=== PATIENT | female | born 1995 | race Caucasian/White ===

== ENCOUNTER 2016-10-19 16:15 | Emergency (ER) | payer OTHER ==
[2016-10-19 16:38] VITALS: BP 115/60; PULSE 86; RESP 16; TEMP 98.6
--- NOTE | 2016-10-19 17:42 | ED ---
Wound/Laceration [facility] - General Chief Complaint: Wound/Laceration Stated Complaint: Finger Laceration Time Seen by Provider: 10/19/16 17:26 Source: patient, RN notes reviewed Mode of arrival: ambulatory Limitations: no limitations - History of Present Illness Initial Comments: 21-year-old female presented emergency department with chief complaint of laceration. Patient states she was using a broom and it broke causing a laceration to her left hand. Patient is up-to-date on tetanus. Patient has full range of motion no paresthesias. - Related Data Allergies Allergy/AdvReac Type Severity Reaction Status Date / Time No Known Allergies Allergy Verified 10/19/16 16:38 Review of Systems ROS Statement: Those systems with pertinent positive or pertinent negative responses have been documented in the HPI. ROS Other: All systems not noted in ROS Statement are negative. Past Medical History Past Medical History: No Reported History History of Any Multi-Drug Resistant Organisms: None Reported Past Surgical History: No Surgical Hx Reported Smoking Status: Never smoker Past Alcohol Use History: None Reported Past Drug Use History: None Reported General Exam Limitations: no limitations General appearance: alert, in no apparent distress Head exam: Present: atraumatic, normocephalic, normal inspection Respiratory exam: Present: normal lung sounds bilaterally. Absent: respiratory distress, wheezes, rales, rhonchi, stridor Cardiovascular Exam: Present: regular rate, normal rhythm, normal heart sounds. Absent: systolic murmur, diastolic murmur, rubs, gallop, clicks Extremities exam: Present: other (There is a 2 cm laceration to her left hand second digit at the distal tip full range of motion full-strength) Course Vital Signs 10/19/16 16:36 Temperature 98.6 F Pulse Rate 86 Respiratory 16 Rate Blood Pressure 115/60 O2 Sat by Pulse 100 Oximetry Procedures - Laceration Laceration #1 Consent Obtained: verbal consent Indication: laceration Site: hand (Left hand second digit) Size (cm): 2 Description: flap Depth: simple, single layer Anesthetic Used: lidocaine 1%, without epi Anesthesia Technique: local infiltration Amount (mls): 3 Pre-repair: wound explored, irrigated extensively Type of Sutures: nylon Size of Sutures: 4-0 Number of Sutures: 5 Technique: simple, interrupted Patient Tolerated Procedure: well, no complications Disposition Clinical Impression: Finger laceration Disposition: HOME SELF-CARE Condition: Stable Instructions: Finger Laceration (ED), Care For Your Stitches (ED) Additional Instructions: Please have your sutures removed in 10 days.Please return to the Emergency Department if symptoms worsen or any other concerns. Referrals: None,Stated [Primary Care Provider] - 1-2 days Time of Disposition: 17:42
== END 2016-10-19 17:52 | disposition home or self-care (01) ==
LOC: EC 16:15
DX: S61.211A Laceration without foreign body of left index finger without damage to nail, initial encounter (principal); W26.8XXA Contact with other sharp object(s), not elsewhere classified, initial encounter
CPT/HCPCS: 12001; 99282

== ENCOUNTER 2016-12-16 16:56 | Emergency (ER) | payer OTHER ==
[2016-12-16 17:17] VITALS: BP 109/68; PULSE 80; RESP 20; TEMP 98.1
--- NOTE | 2016-12-16 18:10 | XR ---
EXAMINATION TYPE: XR wrist complete LT DATE OF EXAM: 12/16/2016 COMPARISON: NONE HISTORY: 21-year-old female with a wrist pain TECHNIQUE: 4 views FINDINGS: Negative ulnar variance incidentally noted. There may be isolated degenerative change between the tra pezoid and capitate. The radiocarpal and distal radial ulnar joints as well as the midcarpal compartm ent appear intact. No acute fracture or dislocation. IMPRESSION: 1. No acute osseous abnormality seen. 2. Incidental negative ulnar variance. 3. Possible focal intercarpal degenerative change between the trapezoid and capitate. Correlate for a ny localized pain here.
--- NOTE | 2016-12-16 18:14 | ED ---
Upper Extremity HPI - General Chief Complaint: Extremity Injury, Upper Stated Complaint: Wrist Injury Time Seen by Provider: 12/16/16 17:35 Source: patient, RN notes reviewed, old records reviewed Mode of arrival: ambulatory Limitations: no limitations - History of Present Illness Initial Comments: 21-year-old female presents to the emergency department with a chief complaint of left wrist pain for the past day. Patient reports she hit her rest on the edge of the stair railing. Has always had aAbnormal deformity and her wrist Which she attributed to some abnormal bony growth. Patient reports it is painful to flex and extend the rest. She is right handed.Patient denies any referral paresthesias, Chest pain, shortness of breath, headache, vision changes , nausea, vomiting, abdominal pain. - Related Data Previous Rx's Medication Instructions Recorded Ibuprofen [Motrin] 600 mg PO Q8HR PRN #20 tab 12/16/16 Allergies Allergy/AdvReac Type Severity Reaction Status Date / Time No Known Allergies Allergy Verified 12/16/16 17:17 Review of Systems ROS Statement: Those systems with pertinent positive or pertinent negative responses have been documented in the HPI. ROS Other: All systems not noted in ROS Statement are negative. Past Medical History Past Medical History: No Reported History History of Any Multi-Drug Resistant Organisms: None Reported Past Surgical History: No Surgical Hx Reported Past Psychological History: No Psychological Hx Reported Smoking Status: Never smoker Past Alcohol Use History: None Reported Past Drug Use History: None Reported General Exam - General Exam Comments Initial Comments: welll appearing 21 year old female, no distress. Limitations: no limitations General appearance: alert, in no apparent distress Head exam: Present: atraumatic, normocephalic, normal inspection Eye exam: Present: normal appearance, PERRL, EOMI. Absent: scleral icterus, conjunctival injection, periorbital swelling ENT exam: Present: normal exam, mucous membranes moist Neck exam: Present: normal inspection. Absent: tenderness, meningismus, lymphadenopathy Respiratory exam: Present: normal lung sounds bilaterally. Absent: respiratory distress, wheezes, rales, rhonchi, stridor Extremities exam: Present: normal inspection, full ROM, normal capillary refill , other (left wrist pain with flexion and etension. No deformity, less than 2 second capilliary refill, good radial pulse. Evidecne of bony over growth, or possible ganglion cyst. ). Absent: tenderness, pedal edema, joint swelling, calf tenderness Back exam: Present: normal inspection Course Vital Signs 12/16/16 17:15 Temperature 98.1 F Pulse Rate 80 Respiratory 20 Rate Blood Pressure 109/68 O2 Sat by Pulse 98 Oximetry Medical Decision Making - Medical Decision Making 21-year-old female presents to the emergency department with a chief complaint of left wrist pain for the past day. Patient reports she hit her rest on the edge of the stair railing. Has always had aAbnormal deformity and her wrist Which she attributed to some abnormal bony growth. Xray negative for any acute fracture. Patient given AUGUST wrap. Instructed to follow up with PCP. Return parameters discussed. - Radiology Data Radiology results: report reviewed No acute osseous at the scene. Incidental negative ulnar variance. Possible focal intercarpal desired change between the trapezoid and capitate. Disposition Clinical Impression: Strain of left wrist, Contusion of left wrist Disposition: HOME SELF-CARE Condition: Good Instructions: Wrist Injury (ED) Additional Instructions: Patient is to rest, ice, elevate extremity. Keep the August wrap on. Return to the emergency department if any alarming signs symptoms occur. Take the anti- inflammatory medicine as per directed. Prescriptions: Ibuprofen [Motrin] 600 mg PO Q8HR PRN #20 tab PRN Reason: Pain Referrals: None,Stated [Primary Care Provider] - 1-2 days Sarah Choudhury MD [STAFF PHYSICIAN] - 1-2 days Jeff Christensen PAC [PHYSICIAN ELECTRICAL INSTRUMENTATION TECHNICIAN] - 1-2 days Time of Disposition: 18:12
== END 2016-12-16 18:52 | disposition home or self-care (01) ==
LOC: EC 16:56
DX: S66.912A Strain of unspecified muscle, fascia and tendon at wrist and hand level, left hand, initial encounter (principal); W22.8XXA Striking against or struck by other objects, initial encounter
CPT/HCPCS: 99284

== ENCOUNTER 2020-01-30 13:48 | Emergency (ER) | payer OTHER ==
[2020-01-30 14:01] VITALS: BP 119/81; PULSE 79; RESP 16; TEMP 98.3
--- NOTE | 2020-01-30 14:20 | ED ---
Extremity Problem HPI - General Chief complaint: Extremity Problem,Nontraumatic Stated complaint: L Leg Pain Time Seen by Provider: 01/30/20 14:03 Source: patient, RN notes reviewed, old records reviewed Mode of arrival: ambulatory Limitations: no limitations - History of Present Illness Initial comments: 24-year-old female presents emergency department today with chief complaint of one month of left ankle pain and feels a small bump on the anterior aspect of the left ankle. Patient denies any recent fall or trauma. She reports that there is some minimal erythema one time and Patient was treated with Keflex. Patient states that she has no redness or pain at this time. Patient states that she feels a smooth bump in the anterior ankle and one have this looked at. Patient states that she's had no fevers or chills. He denies any calf pain knee pain. Denies any pain with range of motion of the ankle. She reports that when she is walking on it from time to time she'll have a sharp pain. - Related Data Previous Rx's Medication Instructions Recorded Ibuprofen [Motrin] 600 mg PO Q8HR PRN #20 tab 12/16/16 Allergies Allergy/AdvReac Type Severity Reaction Status Date / Time No Known Allergies Allergy Verified 01/30/20 14:00 Review of Systems ROS Statement: Those systems with pertinent positive or pertinent negative responses have been documented in the HPI. ROS Other: All systems not noted in ROS Statement are negative. Past Medical History Past Medical History: No Reported History History of Any Multi-Drug Resistant Organisms: None Reported Past Surgical History: No Surgical Hx Reported Past Psychological History: No Psychological Hx Reported Smoking Status: Never smoker Past Alcohol Use History: None Reported Past Drug Use History: Marijuana General Exam - General Exam Comments Initial Comments: 24-year-old female. No distress. Limitations: no limitations General appearance: alert, in no apparent distress Head exam: Present: atraumatic, normocephalic, normal inspection Eye exam: Present: normal appearance, PERRL, EOMI. Absent: scleral icterus, conjunctival injection, periorbital swelling ENT exam: Present: normal exam, mucous membranes moist Neck exam: Present: normal inspection. Absent: tenderness, meningismus, lymphadenopathy Respiratory exam: Present: normal lung sounds bilaterally. Absent: respiratory distress, wheezes, rales, rhonchi, stridor Cardiovascular Exam: Present: regular rate, normal rhythm, normal heart sounds. Absent: systolic murmur, diastolic murmur, rubs, gallop, clicks GI/Abdominal exam: Present: soft, normal bowel sounds. Absent: distended, tenderness, guarding, rebound, rigid Extremities exam: Present: normal inspection, full ROM, normal capillary refill, other (Patient has normal-appearing left ankle. There is a small less than 1 cm bump over the anterior yañez. No swelling or erythema. No history of trauma. She has normal capillary refill less than 2 seconds. Negative Homans sign. Patient has full range of motion of the knee.). Absent: tenderness, pedal edema, joint swelling, calf tenderness Back exam: Present: normal inspection, full ROM Neurological exam: Present: alert, oriented X3, CN II-XII intact Psychiatric exam: Present: normal affect, normal mood Skin exam: Present: warm, dry, intact, normal color. Absent: rash Course Vital Signs 01/30/20 13:58 Temperature 98.3 F Pulse Rate 79 Respiratory 16 Rate Blood Pressure 119/81 O2 Sat by Pulse 100 Oximetry Medical Decision Making - Medical Decision Making 24-year-old female presents emergency from today for evaluation for a bump over the left ankle. She's had this for a month. She states that it seemed to be related to infection she was treated with Keflex but now the infection is gone. Patient at this time has full range of motion. Negative Homans sign tenderness. Her ankle appears normal with one small less than 1 cm bump may be calcification or a cyst. I discussed the Patient needs to follow-up with orthopedic if it continues to cause pain but there is no emergent treatment at this time or imaging required. Patient is agreeable to treatment plan. She did request a work note. Disposition Clinical Impression: Synovial cyst of ankle and foot region Disposition: HOME SELF-CARE Condition: Good Instructions (If sedation given, give patient instructions): Arthralgia (ED) Additional Instructions: Motrin Tylenol for pain. Wrap the area that does become swollen. Follow-up with orthopedic. Is patient prescribed a controlled substance at d/c from ED?: No Referrals: None,Stated [Primary Care Provider] - 1-2 days Vipin Melton DO [Medical Doctor] - 1-2 days Time of Disposition: 14:18
== END 2020-01-30 14:42 | disposition home or self-care (01) ==
LOC: EC 13:48
DX: M71.372 Other bursal cyst, left ankle and foot (principal)
CPT/HCPCS: 99283

== ENCOUNTER 2020-03-22 07:11 | Emergency (ER) | payer OTHER ==
[2020-03-22 07:21] VITALS: BP 118/79; PULSE 68; RESP 18; TEMP 98.7
--- NOTE | 2020-03-22 07:47 | ED ---
General Adult HPI - General Chief complaint: Nausea/Vomiting/Diarrhea Stated complaint: abd pain Time Seen by Provider: 03/22/20 07:11 Source: patient, RN notes reviewed, old records reviewed Mode of arrival: ambulatory Limitations: no limitations - History of Present Illness Initial comments: This is a 24-year-old female who presents emergency department stating she woke up nauseated this morning patient denies any vomiting. Patient denies any fever chills. Patient denies any cough. Patient denies any difficulty breathing shortest breath per patient denies any diarrhea. Patient states this is been something that is occurred occasionally over the last year or so she's never been followed up for. Patient states she felt so nauseated that she called into work and her work requires her to come the emergency department to be COVID test. Patient states aside from the nausea she has no other symptoms. She has no abdominal pain. Patient states she's had no known exposure COVID. Patient states she can't be because she has never been sexually active. - Related Data Previous Rx's Medication Instructions Recorded Ibuprofen [Motrin] 600 mg PO Q8HR PRN #20 tab 12/16/16 Allergies Allergy/AdvReac Type Severity Reaction Status Date / Time No Known Allergies Allergy Verified 03/22/20 07:21 Review of Systems ROS Statement: Those systems with pertinent positive or pertinent negative responses have been documented in the HPI. ROS Other: All systems not noted in ROS Statement are negative. Past Medical History Past Medical History: No Reported History History of Any Multi-Drug Resistant Organisms: None Reported Past Surgical History: No Surgical Hx Reported Past Psychological History: No Psychological Hx Reported Smoking Status: Never smoker Past Alcohol Use History: Occasional Past Drug Use History: Marijuana General Exam - General Exam Comments Initial Comments: GENERAL: Patient is well-developed and well-nourished. Patient is nontoxic and well- hydrated and is in mild distress. ENT: Neck is soft and supple. No significant lymphadenopathy is noted. Oropharynx is clear. Moist mucous membranes. Neck has full range of motion without eliciting any pain. EYES: The sclera were anicteric and conjunctiva were pink and moist. Extraocular movements were intact and pupils were equal round and reactive to light. Eyelids were unremarkable. PULMONARY: Unlabored respirations. Good breath sounds bilaterally. No audible rales rhonchi or wheezing was noted. CARDIOVASCULAR: There is a regular rate and rhythm without any murmurs gallops or rubs. ABDOMEN: Soft and nontender with normal bowel sounds. SKIN: Skin is clear with no lesions or rashes and otherwise unremarkable. NEUROLOGIC: Patient is alert and oriented x3. Cranial nerves II through XII are grossly intact. Motor and sensory are also intact. Normal speech, volume and content. Symmetrical smile. MUSCULOSKELETAL: Normal extremities with adequate strength and full range of motion. LYMPHATICS: No significant lymphadenopathy is noted PSYCHIATRIC: Normal psychiatric evaluation. Limitations: no limitations Course Vital Signs 03/22/20 07:18 Temperature 98.7 F Pulse Rate 68 Respiratory 18 Rate Blood Pressure 118/79 O2 Sat by Pulse 100 Oximetry Medical Decision Making - Medical Decision Making We performed a COVID test. Disposition Clinical Impression: Nausea Disposition: HOME SELF-CARE Instructions (If sedation given, give patient instructions): Acute Nausea and Vomiting (ED) Additional Instructions: If patient has any worsening symptoms or new symptoms patient is to return to the emergency department until she follows up. Patient received a primary [facility] care doctor and follow-up for the nausea. Is patient prescribed a controlled substance at d/c from ED?: No Referrals: None,Stated [Primary Care Provider] - 1-2 days Time of Disposition: 07:49
== END 2020-03-22 08:12 | disposition home or self-care (01) ==
LOC: EC 07:11
DX: R11.0 Nausea (principal)
CPT/HCPCS: 99284; U0003

== ENCOUNTER 2020-07-17 15:41 | Emergency (ER) | payer OTHER ==
[2020-07-17 15:45] VITALS: BP 123/79; PULSE 90; RESP 20; TEMP 97.6
[2020-07-17] MEDS ORDERED: KETOROLAC 15 MG/ML 1 ML VIAL IVP STA (16:01)
[2020-07-17] MEDS ORDERED: SODIUM CHLORIDE 0.9% 1,000 ML IV STA (16:01)
[2020-07-17] MEDS ORDERED: ONDANSETRON 4 MG/2 ML VIAL IVP STA (16:01)
[2020-07-17 16:54] LABS: Basophils % (A) 0 %; Eosinophils # (A) 0.1 k/uL (0-0.7); Eosinophils % (A) 1 %; HCT 41.6 % (34.0-46.0); HGB 14.1 gm/dL (11.4-16.0); Lymphocytes # (A) 1.8 k/uL (1.0-4.8); Lymphocytes % (A) 29 %; MCH 29.1 pg (25.0-35.0); MCV 85.8 fL (80.0-100.0); Mean Platelet Volume 6.6; Monocytes # (A) 0.3 k/uL (0-1.0); Monocytes % (A) 5 %; Neutrophils # (A) 3.8 k/uL (1.3-7.7); Neutrophils % (A) 63 %; Platelet Count 259 k/uL (150-450); RBC 4.85 m/uL (3.80-5.40); RDW 12.7 % (11.5-15.5); WBC 6.1 k/uL (3.8-10.6)
[2020-07-17 17:00] LABS: Amorphous Sediment,Urine Few /hpf; Appearance,Urine Cloudy (Clear); Bilirubin,Urine Negative (Negative); Blood,Urine Negative (Negative); Color,Urine Yellow; Glucose,Urine (UA) Negative (Negative); Ketones,Urine Negative (Negative); Leukocyte Esterase,Urine Trace (Negative); Mucus,Urine Rare /hpf; Nitrite,Urine Negative (Negative); PH, Urine 6.5 (5.0-8.0); Protein,Urine Negative (Negative); RBC,Urine <1 /hpf (0-5); Specific Gravity,Urine 1.021 (1.001-1.035); Squamous Epithelial Cell,Urine 1 /hpf (0-4); Urobilinogen,Urine <2.0 mg/dL (<2.0); WBC,Urine 2 /hpf (0-5)
[2020-07-17 17:21] LABS: ALT 12 U/L (4-34); AST 19 U/L (14-36); African American GFR (CKD) >90 (>60 ml/min/1.73 sqM); Albumin 4.2 g/dL (3.5-5.0); Alkaline Phosphatase 61 U/L (38-126); Anion Gap 8 mmol/L; Blood Urea Nitrogen 12 mg/dL (7-17); Calcium 9.4 mg/dL (8.4-10.2); Carbon Dioxide 25 mmol/L (22-30); Chloride 104 mmol/L (98-107); Glucose 99 mg/dL (74-99); Lipase 107 U/L (23-300); Non-African American GFR(CKD) >90 (>60 ml/min/1.73 sqM); Sodium 137 mmol/L (137-145); Total Bilirubin 0.4 mg/dL (0.2-1.3); Total Protein 6.8 g/dL (6.3-8.2)
--- NOTE | 2020-07-17 17:24 | XR ---
EXAMINATION TYPE: XR KUB DATE OF EXAM: 07/17/2020 COMPARISON: NONE HISTORY: Abdominal pain for one month TECHNIQUE: 2 views upright FINDINGS: There is no sign of intestinal obstruction or pneumoperitoneum. Fecal pattern is normal. Kimmy ng bases are clear. There are no pathologic calcifications over the kidneys. Bony structures are inta ct. IMPRESSION: Nonacute abdomen.
--- NOTE | 2020-07-17 17:49 | ED ---
Abdominal Pain HPI - General Chief Complaint: Abdominal Pain Stated Complaint: abd pain Source: patient Mode of arrival: ambulatory Limitations: no limitations - History of Present Illness Initial Comments: Patient is a 24-year-old previously healthy female who presents emergency room in with reported abdominal pain. States that she has had some generalized abdominal pain going on for the past several months. She was evaluated in our emergency department several months ago. Reports that her pain has continued and she was seen at [facility] weeks ago. Describes her pain as a generalized abdominal pain. She will have some cramping which is followed by a bowel movement. He reports that the bowel movement will be variable between constipation and diarrhea. Says she has a bowel movement her symptoms will improve. Denies family history of inflammatory bowel disease. No black or bloody stools. Denies dysuria, hematuria or difficulty voiding. No abnormal vaginal bleeding or discharge. No concern for . No concern sexually transmitted infections. Reports that 3 weeks ago at [facility] she had a CT of her abdomen. Was told that she was constipated however was not given any instructions. Has not followed up with her primary care doctor. She has not taken anything [id number] to move her bowels. Her pain was more significant at that time warranting the CT. States that it has improved however due to her continued pain decided to come to the emergency room for evaluation. No fevers or chills. Denies cough or shortness of breath. No other alleviating, precipitating or modifying factors - Related Data Previous Rx's Medication Instructions Recorded Ibuprofen [Motrin] 600 mg PO Q8HR PRN #20 tab 12/16/16 Polyethylene Glycol 3350 [Miralax] 17 gm PO DAILY PRN #527 gm 07/17/20 Allergies Allergy/AdvReac Type Severity Reaction Status Date / Time No Known Allergies Allergy Verified 07/17/20 15:45 Review of Systems ROS Statement: Those systems with pertinent positive or pertinent negative responses have been documented in the HPI. ROS Other: All systems not noted in ROS Statement are negative. Past Medical History Past Medical History: No Reported History History of Any Multi-Drug Resistant Organisms: None Reported Past Surgical History: No Surgical Hx Reported Past Psychological History: No Psychological Hx Reported Smoking Status: Never smoker Past Alcohol Use History: Occasional Past Drug Use History: Marijuana General Exam Limitations: no limitations General appearance: alert, in no apparent distress Head exam: Present: atraumatic, normocephalic, normal inspection Eye exam: Present: normal appearance, PERRL, EOMI. Absent: scleral icterus, conjunctival injection, periorbital swelling ENT exam: Present: normal exam, mucous membranes moist Neck exam: Present: normal inspection. Absent: tenderness, meningismus, lymphadenopathy Respiratory exam: Present: normal lung sounds bilaterally. Absent: respiratory distress, wheezes, rales, rhonchi, stridor Cardiovascular Exam: Present: regular rate, normal rhythm, normal heart sounds. Absent: systolic murmur, diastolic murmur, rubs, gallop, clicks GI/Abdominal exam: Present: soft, normal bowel sounds. Absent: distended, tenderness, guarding, rebound, rigid Extremities exam: Present: normal inspection, full ROM, normal capillary refill. Absent: tenderness, pedal edema, joint swelling, calf tenderness Back exam: Present: normal inspection Neurological exam: Present: alert, oriented X3, CN II-XII intact Psychiatric exam: Present: normal affect, normal mood Skin exam: Present: warm, dry, intact, normal color. Absent: rash Course Vital Signs 07/17/20 15:43 Temperature 97.6 F Pulse Rate 90 Respiratory 20 Rate Blood Pressure 123/79 O2 Sat by Pulse 99 Oximetry Medical Decision Making - Medical Decision Making Plan arrival patient is placed into room 19. A thorough history and physical exam was performed. IV is established. Patient was given informal grams of Zofran, 50 mg of Toradol and a liter bolus of normal saline. Laboratory studies are conducted. Patient was sent for a abdominal x-ray. Laboratory studies and imaging are reviewed for any acute findings. I discussed results with the patient. I discussed diagnosis, differential treatment options. She must call her insurance company to be given a list of available providers at take her insurance. She will be given a prescription for MiraLAX to take as needed for constipation. Return to the emergency room for any new or worsening symptoms. I did recommend colonoscopy and EGD. Patient agreed to this treatment plan and was discharged home in stable condition - Lab Data Result diagrams: 07/17/20 16:47 07/17/20 16:47 Lab Results 07/17/20 07/17/20 07/17/20 Range/Units 16:47 16:47 16:47 WBC 6.1 (3.8-10.6) k/uL RBC 4.85 (3.80-5.40) m/uL Hgb 14.1 (11.4-16.0) gm/dL Hct 41.6 (34.0-46.0) % MCV 85.8 (80.0-100.0) fL MCH 29.1 (25.0-35.0) pg MCHC 34.0 (31.0-37.0) g/dL RDW 12.7 (11.5-15.5) % Plt Count 259 (150-450) k/uL MPV 6.6 Neutrophils % 63 % Lymphocytes % 29 % Monocytes % 5 % Eosinophils % 1 % Basophils % 0 % Neutrophils # 3.8 (1.3-7.7) k/uL Lymphocytes # 1.8 (1.0-4.8) k/uL Monocytes # 0.3 (0-1.0) k/uL Eosinophils # 0.1 (0-0.7) k/uL Basophils # 0.0 (0-0.2) k/uL Sodium 137 (137-145) mmol/L Potassium 4.0 (3.5-5.1) mmol/L Chloride 104 (98-107) mmol/L Carbon Dioxide 25 (22-30) mmol/L Anion Gap 8 mmol/L BUN 12 (7-17) mg/dL Creatinine 0.84 (0.52-1.04) mg/dL Est GFR (CKD-EPI)AfAm >90 (>60 ml/min/1.73 sqM) Est GFR (CKD-EPI)NonAf >90 (>60 ml/min/1.73 sqM) Glucose 99 (74-99) mg/dL Calcium 9.4 (8.4-10.2) mg/dL Total Bilirubin 0.4 (0.2-1.3) mg/dL AST 19 (14-36) U/L ALT 12 (4-34) U/L Alkaline Phosphatase 61 (38-126) U/L Total Protein 6.8 (6.3-8.2) g/dL Albumin 4.2 (3.5-5.0) g/dL Lipase 107 (23-300) U/L Urine Color Yellow Urine Appearance Cloudy H (Clear) Urine pH 6.5 (5.0-8.0) Ur Specific Bridger 1.021 (1.001-1.035) Urine Protein Negative (Negative) Urine Glucose (UA) Negative (Negative) Urine Ketones Negative (Negative) Urine Blood Negative (Negative) Urine Nitrite Negative (Negative) Urine Bilirubin Negative (Negative) Urine Urobilinogen <2.0 (<2.0) mg/dL Ur Leukocyte Esterase Trace H (Negative) Urine RBC <1 (0-5) /hpf Urine WBC 2 (0-5) /hpf Ur Squamous Epith Cells 1 (0-4) /hpf Amorphous Sediment Few H (None) /hpf Urine Mucus Rare H (None) /hpf - EKG Data EKG Comments: EKG demonstrates a sinus rhythm with ventricular rate of 76. MS 158. QRS 76. QTC of 405. No acute ST segment elevations or depressions concerning for ischemic changes Disposition Clinical Impression: Abdominal pain Disposition: HOME SELF-CARE Condition: Stable Instructions (If sedation given, give patient instructions): Abdominal Pain (ED) Additional Instructions: Please call your insurance company to ask for a primary care doctor that takes your insurance. Take the Miralax for constipation. You may need an EGD and colonoscopy. The primary care doctor can get you set up with these studies. R eturn to the ED for any new or worsening symptoms. Prescriptions: Polyethylene Glycol 3350 [Miralax] 17 gm PO DAILY PRN #527 gm PRN Reason: Constipation Is patient prescribed a controlled substance at d/c from ED?: No Referrals: None,Stated [Primary Care Provider] - 1-2 days Time of Disposition: 17:49
== END 2020-07-17 18:21 | disposition home or self-care (01) ==
LOC: EC 15:41
DX: R10.84 Generalized abdominal pain (principal); K59.00 Constipation, unspecified
CPT/HCPCS: 36415; 93005; 80053; 83690; 85025; 81001; 74018; 99284; 96374; 96375; 96361; J2405; J1885

== ENCOUNTER 2020-09-03 11:29 | Emergency (ER) | payer OTHER ==
[2020-09-03 11:35] VITALS: BP 118/82; PULSE 98; RESP 18; TEMP 97.8
--- NOTE | 2020-09-03 12:13 | XR ---
EXAMINATION TYPE: XR tibia fibula LT DATE OF EXAM: 09/03/2020 CLINICAL HISTORY: Pain and swelling. TECHNIQUE: Two views of the left leg are obtained. COMPARISON: None. FINDINGS: There is no acute fracture or dislocation seen in the left tibia or fibula. The left knee and ankle joints appear within normal limits. The overlying soft tissue appears unremarkable. IMPRESSION: Unremarkable study.
--- NOTE | 2020-09-03 12:16 | ED ---
Skin/Abscess/FB HPI - General Chief complaint: Skin/Abscess/Foreign Body Stated complaint: Leg pain Time Seen by Provider: 09/03/20 11:37 Source: patient Mode of arrival: ambulatory Limitations: no limitations - History of Present Illness Initial comments: 25-year-old female presenting to the emergency room today for chief complaint of left distal yañez pain. Patient states she hadn't has no injuries to her yañez or her legs she denies being a runner but states she has had anterior left lower yañez pain. She states she presented for the cellulitis in this area however she does not know any swelling redness she denies any fevers breaks in the skin or noting additional physical findings. Denies calf pain/posterior pain or leg swelling. Patient appears well nontoxic in no acute distress. - Related Data Previous Rx's Medication Instructions Recorded Ibuprofen [Motrin] 600 mg PO Q8HR PRN #20 tab 12/16/16 Polyethylene Glycol 3350 [Miralax] 17 gm PO DAILY PRN #527 gm 07/17/20 Allergies Allergy/AdvReac Type Severity Reaction Status Date / Time No Known Allergies Allergy Verified 09/03/20 11:35 Review of Systems ROS Statement: Those systems with pertinent positive or pertinent negative responses have been documented in the HPI. ROS Other: All systems not noted in ROS Statement are negative. Past Medical History Past Medical History: No Reported History History of Any Multi-Drug Resistant Organisms: None Reported Past Surgical History: No Surgical Hx Reported Past Psychological History: No Psychological Hx Reported Smoking Status: Never smoker Past Alcohol Use History: Occasional Past Drug Use History: Marijuana General Exam - General Exam Comments Initial Comments: General: The patient is awake and alert, in no distress Eye: Pupils are equal, round and reactive to light, extra-ocular movements are intact. No nystagmus. There is normal conjunctiva bilaterally. No signs of icterus. Ears, nose, mouth and throat: There are moist mucous membranes and no oral lesions. Neck: The neck is supple, there is no tenderness or JVD. Cardiovascular: There is a regular rate and rhythm. No murmur, rub or gallop is appreciated. Respiratory: Lungs are clear to auscultation, respirations are non-labored, breath sounds are equal. No wheezes, stridor, rales, or rhonchi. Gastrointestinal: [Soft, non-distended, non-tender abdomen without masses or organomegaly noted. There is no rebound or guarding present. Musculoskeletal: tender along the tendon of the left distal tibia. no swelling no redness. tenderness mmild. Normal ROM, no tenderness. Strength 5/5. Sensation intact. Radial and DP pulses equal bilaterally 2+. Neurological: A&O x 3. CN II-XII intact grossly, There are no obvious motor or sensory deficits. Coordination appears grossly intact. Speech is normal. Skin: Skin is warm and dry and no rashes or lesions are noted. Psychiatric: Cooperative, appropriate mood & affect, normal judgment. Limitations: no limitations Course Vital Signs 09/03/20 11:32 Temperature 97.8 F Pulse Rate 98 Respiratory 18 Rate Blood Pressure 118/82 O2 Sat by Pulse 98 Oximetry Medical Decision Making - Medical Decision Making Physical examination findings revealed no skin changes. No swelling. There is no posterior pain pain is very localized to tendon of lower leg. suspect tendonitis. Discussed symptomatic treatment including rice--at this time patient is agreeable to discharge with outpatient primary care follow-up. Disposition Clinical Impression: Pain in left yañez Disposition: HOME SELF-CARE Condition: Good Instructions (If sedation given, give patient instructions): Calcific Tendini tis (ED) Additional Instructions: Please use medication as discussed. Please follow-up with family doctor in the next 2 days. Please return to emergency room if the symptoms increase or worsen or for any other concerns. Is patient prescribed a controlled substance at d/c from ED?: No Referrals: None,Stated [Primary Care Provider] - [facility] Time of Disposition: 12:16
== END 2020-09-03 12:48 | disposition home or self-care (01) ==
LOC: EC 11:29
DX: M79.662 Pain in left lower leg (principal); F12.90 Cannabis use, unspecified, uncomplicated
CPT/HCPCS: 99283

== ENCOUNTER 2020-09-18 04:45 | Emergency (ER) | payer OTHER ==
[2020-09-18 04:52] VITALS: BP 121/75; PULSE 106; RESP 18; TEMP 98
[2020-09-18] MEDS ORDERED: ONDANSETRON ODT 4 MG TAB PO STA (05:06)
--- NOTE | 2020-09-18 05:09 | ED ---
Nausea/Vomiting/Diarrhea HPI - General Chief complaint: Nausea/Vomiting/Diarrhea Stated complaint: abd pain Time Seen by Provider: 09/18/20 04:57 Source: patient Mode of arrival: ambulatory Limitations: no limitations - History of Present Illness Initial comments: Patient is 25-year-old woman who presents to have treatment for nausea and vomiting as well as COVID-19 test. The patient had gone to work and then tonight at 3 AM developed nausea and had an episode of vomiting. She states she was sent home from work and told that she needed to have a negative test before she can return. She has not had other symptoms. Patient currently denying abdominal pain. She states that she does have irritable bowel syndrome so she does occasionally get cramping, and does have some issues with diarrhea occasionally. Tonight no change in urination or bowel movements. Her last menstrual cycle was nearly one month ago and was normal. MD complaint: nausea, vomiting Onset/Timin -: hour(s) Description of Vomiting: food contents Associated Abdominal Pain: No Severity scale (1-10): 0 Improves with: none Worsens with: none Associated Symptoms: denies other symptoms, nausea/vomiting - Related Data Previous Rx's Medication Instructions Recorded Ibuprofen [Motrin] 600 mg PO Q8HR PRN #20 tab 12/16/16 Polyethylene Glycol 3350 [Miralax] 17 gm PO DAILY PRN #527 gm 07/17/20 Ondansetron Odt [Zofran ODT] 4 mg PO Q8HR PRN #10 tab 09/18/20 Allergies Allergy/AdvReac Type Severity Reaction Status Date / Time No Known Allergies Allergy Verified 09/18/20 04:49 Review of Systems ROS Statement: Those systems with pertinent positive or pertinent negative responses have been documented in the HPI. ROS Other: All systems not noted in ROS Statement are negative. Constitutional: Denies: fever, chills Respiratory: Denies: cough, dyspnea Cardiovascular: Denies: chest pain, palpitations, edema Gastrointestinal: Reports: nausea, vomiting. Denies: abdominal pain, diarrhea, constipation, hematemesis, melena, hematochezia Genitourinary: Denies: dysuria, hematuria, abnormal menses Musculoskeletal: Denies: back pain Skin: Denies: rash Neurological: Denies: headache, weakness, numbness Past Medical History Past Medical History: No Reported History History of Any Multi-Drug Resistant Organisms: None Reported Past Surgical History: No Surgical Hx Reported Past Psychological History: Anxiety Smoking Status: Current every day smoker Past Alcohol Use History: None Reported Past Drug Use History: Marijuana General Exam Limitations: no limitations General appearance: alert, in no apparent distress Head exam: Present: atraumatic, normocephalic Eye exam: Present: normal appearance. Absent: scleral icterus, conjunctival injection Respiratory exam: Present: normal lung sounds bilaterally. Absent: respiratory distress, wheezes, rales, rhonchi, stridor Cardiovascular Exam: Present: regular rate, normal rhythm, normal heart sounds. Absent: systolic murmur, diastolic murmur, rubs, gallop GI/Abdominal exam: Present: soft. Absent: distended, tenderness, guarding, rebound, rigid, mass, pulsatile mass, hernia Back exam: Present: normal inspection. Absent: CVA tenderness (R), CVA tenderness (L) Neurological exam: Present: alert Skin exam: Present: warm, dry, intact, normal color. Absent: rash Course Vital Signs 09/18/20 04:49 Temperature 98.0 F Pulse Rate 106 H Respiratory 18 Rate Blood Pressure 121/75 O2 Sat by Pulse 97 Oximetry Medical Decision Making - Medical Decision Making We discussed having workup for abdominal pain, this point patient states she is feeling much better and declines that. She did just wants something for nausea and to have the Covid test - Lab Data Lab Results 09/18/20 Range/Units 05:13 Influenza Type A (PCR) Not Detected (Not Detectd) Influenza Type B (PCR) Not Detected (Not Detectd) RSV (PCR) Not Detected (Not Detectd) SARS-CoV-2 (PCR) Not Detected (Not Detectd) Disposition Clinical Impression: Vomiting Disposition: HOME SELF-CARE Condition: Good Instructions (If sedation given, give patient instructions): Acute Nausea and Vomiting (ED) Prescriptions: Ondansetron Odt [Zofran ODT] 4 mg PO Q8HR PRN #10 tab PRN Reason: Nausea Is patient prescribed a controlled substance at d/c from ED?: No Referrals: Jones Salazar MD [Primary Care Provider] - 1-2 days
== END 2020-09-18 07:23 | disposition home or self-care (01) ==
LOC: EC 04:45
DX: R11.2 Nausea with vomiting, unspecified (principal); Z20.822 Contact with and (suspected) exposure to COVID-19; F17.200 Nicotine dependence, unspecified, uncomplicated
CPT/HCPCS: 87636; 99283

== ENCOUNTER 2020-11-06 05:08 | Emergency (ER) | payer OTHER ==
[2020-11-06 05:19] VITALS: BP 117/81; PULSE 98; RESP 18; TEMP 97.8
[2020-11-06] MEDS ORDERED: CEPHALEXIN 500 MG CAP PO STA (06:27)
[2020-11-06] MEDS ORDERED: CLINDAMYCIN 150 MG CAP PO STA (06:27)
--- NOTE | 2020-11-06 06:28 | ED ---
General Adult HPI - General Chief complaint: Urogenital Stated complaint: Urogenital Time Seen by Provider: 11/06/20 05:27 Source: patient Mode of arrival: ambulatory Limitations: no limitations - History of Present Illness Initial comments: 25-year-old female presents to the emergency room for a chief complaint of labial abscess. Patient states this started over the past couple days. She reports that she did squeeze it and get pus out yet last night but it is getting more painful and she is unable to do this. Patient denies fevers. Denies const itutional symptoms. Patient has never had this before.Patient has no other complaints at this time including shortness of breath, chest pain, abdominal pain, nausea or vomiting, headache, or visual changes. - Related Data Previous Rx's Medication Instructions Recorded Ibuprofen [Motrin] 600 mg PO Q8HR PRN #20 tab 12/16/16 Polyethylene Glycol 3350 [Miralax] 17 gm PO DAILY PRN #527 gm 07/17/20 Ondansetron Odt [Zofran ODT] 4 mg PO Q8HR PRN #10 tab 09/18/20 Cephalexin [Keflex] 500 mg PO Q8HR 7 Days #21 cap 11/06/20 Clindamycin [Cleocin] 300 mg PO QID 7 Days #56 cap 11/06/20 Allergies Allergy/AdvReac Type Severity Reaction Status Date / Time No Known Allergies Allergy Verified 11/06/20 05:19 Review of Systems ROS Statement: Those systems with pertinent positive or pertinent negative responses have been documented in the HPI. ROS Other: All systems not noted in ROS Statement are negative. Past Medical History Past Medical History: No Reported History History of Any Multi-Drug Resistant Organisms: None Reported Past Surgical History: No Surgical Hx Reported Past Psychological History: Anxiety Smoking Status: Vaper Past Alcohol Use History: Occasional Past Drug Use History: Marijuana General Exam Limitations: no limitations General appearance: alert, in no apparent distress Head exam: Present: atraumatic, normocephalic, normal inspection Eye exam: Present: normal appearance, PERRL, EOMI. Absent: scleral icterus, conjunctival injection, periorbital swelling ENT exam: Present: normal exam, mucous membranes moist Neck exam: Present: normal inspection. Absent: tenderness, meningismus, lymphadenopathy Respiratory exam: Present: normal lung sounds bilaterally. Absent: respiratory distress, wheezes, rales, rhonchi, stridor Cardiovascular Exam: Present: regular rate, normal rhythm, normal heart sounds. Absent: systolic murmur, diastolic murmur, rubs, gallop, clicks GI/Abdominal exam: Present: soft, normal bowel sounds. Absent: distended, tenderness, guarding, rebound, rigid External exam: Present: swelling ( 2 cm fluctuant left labial abscess without surrounding erythema. No cellulitis.). Absent: normal external exam Neurological exam: Present: alert Course Vital Signs 11/06/20 05:15 Temperature 97.8 F Pulse Rate 98 Respiratory 18 Rate Blood Pressure 117/81 O2 Sat by Pulse 99 Oximetry Procedures - Incision & Drainage Consent Obtained: verbal consent, written consent Indication: Abscess Site: vulva/vagina Size (cm): 2 Anesthetic Used: lidocaine 1% I&D Cleaning Method: Chloroprep Scalpel Used: #11 Patient Tolerated Procedure: well, no complications Medical Decision Making - Medical Decision Making Dr cates initially saw patient. Incision and drainage was performed by myself. Purulent material expelled. Patient was given antibiotics. Discussed warm compresses. Will return for any worsening symptoms. Disposition Clinical Impression: Labial abscess Disposition: HOME SELF-CARE Condition: Good Instructions (If sedation given, give patient instructions): Abscess Incision and Drainage (ED) Additional Instructions: Apply warm compresses or do sits baths. Take antibiotics as directed. Follow- up with your doctor. Return to the emergency room if symptoms are not improving. Prescriptions: Clindamycin [Cleocin] 300 mg PO QID 7 Days #56 cap Cephalexin [Keflex] 500 mg PO Q8HR 7 Days #21 cap Is patient prescribed a controlled substance at d/c from ED?: No Referrals: Jones Salazar MD [Primary Care Provider] - 1-2 days Time of Disposition: 06:24
== END 2020-11-06 06:42 | disposition home or self-care (01) ==
LOC: EC 05:08
DX: N76.4 Abscess of vulva (principal); F41.9 Anxiety disorder, unspecified; F17.290 Nicotine dependence, other tobacco product, uncomplicated; F12.90 Cannabis use, unspecified, uncomplicated
CPT/HCPCS: 56405; 99282

== ENCOUNTER 2021-01-06 04:49 | Emergency (ER) | payer OTHER ==
[2021-01-06 04:58] VITALS: RESP 16
[2021-01-06] MEDS ORDERED: SODIUM CHLORIDE 0.9% 1,000 ML IV STA (05:18)
[2021-01-06] MEDS ORDERED: KETOROLAC 15 MG/ML 1 ML VIAL IVP STA (05:18)
[2021-01-06] MEDS ORDERED: ONDANSETRON 4 MG/2 ML VIAL IVP STA (05:18)
[2021-01-06] MEDS ORDERED: MORPHINE SULFATE 4 MG/ML SYRINGE IV STA (05:18)
[2021-01-06] MEDS ORDERED: DICYCLOMINE 10 MG/ML 2 ML AMP IM STA (05:18)
--- NOTE | 2021-01-06 05:19 | ED ---
Abdominal Pain HPI - General Chief Complaint: Abdominal Pain Stated Complaint: ABD Pain Time Seen by Provider: 01/06/21 04:51 Source: patient, RN notes reviewed, old records reviewed Mode of arrival: ambulatory Limitations: no limitations - History of Present Illness Initial Comments: This is a 25-year-old female to the ER for evaluation today. Today she presents for evaluation regards to abdominal pain is acute on chronic abdominal pain for some diagnosis of irritable bowel syndrome. Patient is having bowel movements and passing gas with regularity no travel history or sick contacts no fevers no nausea vomiting pain is diffuse and not near the worst pain she is around head. Symptoms woke her up from sleep today MD Complaint: abdominal pain -: hour(s) Location: diffuse, periumbilical, epigastric, suprapubic Radiation: epigastric, suprapubic Migration to: epigastric, suprapubic Severity: moderate Severity scale (1-10): 4 Quality: cramping, aching Consistency: intermittent Improves With: nothing Worsens With: nothing Associated Symptoms: nausea Treatments Prior to Arrival: other (none) - Related Data Previous Rx's Medication Instructions Recorded Ibuprofen [Motrin] 600 mg PO Q8HR PRN #20 tab 12/16/16 Polyethylene Glycol 3350 [Miralax] 17 gm PO DAILY PRN #527 gm 07/17/20 Ondansetron Odt [Zofran ODT] 4 mg PO Q8HR PRN #10 tab 09/18/20 Cephalexin [Keflex] 500 mg PO Q8HR 7 Days #21 cap 11/06/20 Clindamycin [Cleocin] 300 mg PO QID 7 Days #56 cap 11/06/20 Metoclopramide [Reglan] 10 mg PO TID PRN #60 tab 01/06/21 Allergies Allergy/AdvReac Type Severity Reaction Status Date / Time No Known Allergies Allergy Verified 11/06/20 05:19 Review of Systems ROS Statement: Those systems with pertinent positive or pertinent negative responses have been documented in the HPI. ROS Other: All systems not noted in ROS Statement are negative. Past Medical History Past Medical History: No Reported History History of Any Multi-Drug Resistant Organisms: None Reported Past Surgical History: No Surgical Hx Reported Past Psychological History: Anxiety Smoking Status: Current every day smoker Past Alcohol Use History: Occasional Past Drug Use History: Marijuana General Exam Limitations: no limitations General appearance: alert, in no apparent distress Head exam: Present: atraumatic, normocephalic, normal inspection Eye exam: Present: normal appearance, PERRL, EOMI. Absent: scleral icterus, conjunctival injection, periorbital swelling ENT exam: Present: normal exam, mucous membranes moist Neck exam: Present: normal inspection. Absent: tenderness, meningismus, lymphadenopathy Respiratory exam: Present: normal lung sounds bilaterally. Absent: respiratory distress, wheezes, rales, rhonchi, stridor Cardiovascular Exam: Present: regular rate, normal rhythm, normal heart sounds. Absent: systolic murmur, diastolic murmur, rubs, gallop, clicks GI/Abdominal exam: Present: soft, normal bowel sounds. Absent: distended, t enderness, guarding, rebound, rigid Extremities exam: Present: normal inspection, full ROM, normal capillary refill. Absent: tenderness, pedal edema, joint swelling, calf tenderness Back exam: Present: normal inspection Neurological exam: Present: alert, oriented X3, CN II-XII intact Psychiatric exam: Present: normal affect, normal mood Skin exam: Present: warm, dry, intact, normal color. Absent: rash Course Vital Signs 01/06/21 01/06/21 04:53 07:17 Temperature 98 F 98.3 F Pulse Rate 72 54 L Respiratory 16 16 Rate Blood Pressure 99/67 99/66 O2 Sat by Pulse 99 100 Oximetry - Reevaluation(s) Reevaluation #1: 01/06/21 05:19 Medical record is reviewed Reevaluation #2: 01/07/21 Patient symptoms are improved here in the emergency department Patient informed of results and questions answered Patient is in no acute distress Medical Decision Making - Medical Decision Making 25 female DEL with nonspecific abdominal pain likely irritable bowel syndrome x- ray KUB is otherwise negative lab values are normal patient can be discharged home - Lab Data Result diagrams: 01/06/21 05:18 01/06/21 05:18 Lab Results 01/06/21 01/06/21 01/06/21 Range/Units 05:18 05:18 05:18 WBC 6.4 (3.8-10.6) k/uL RBC 5.02 (3.80-5.40) m/uL Hgb 14.6 (11.4-16.0) gm/dL Hct 44.5 (34.0-46.0) % MCV 88.6 (80.0-100.0) fL MCH 29.1 (25.0-35.0) pg MCHC 32.9 (31.0-37.0) g/dL RDW 12.9 (11.5-15.5) % Plt Count 282 (150-450) k/uL MPV 7.4 Neutrophils % 51 % Lymphocytes % 39 % Monocytes % 5 % Eosinophils % 3 % Basophils % 0 % Neutrophils # 3.3 (1.3-7.7) k/uL Lymphocytes # 2.5 (1.0-4.8) k/uL Monocytes # 0.3 (0-1.0) k/uL Eosinophils # 0.2 (0-0.7) k/uL Basophils # 0.0 (0-0.2) k/uL Sodium (137-145) mmol/L Potassium (3.5-5.1) mmol/L Chloride (98-107) mmol/L Carbon Dioxide (22-30) mmol/L Anion Gap mmol/L BUN (7-17) mg/dL Creatinine (0.52-1.04) mg/dL Est GFR (CKD-EPI)AfAm (>60 ml/min/1.73 sqM) Est GFR (CKD-EPI)NonAf (>60 ml/min/1.73 sqM) Glucose (74-99) mg/dL Calcium (8.4-10.2) mg/dL Total Bilirubin (0.2-1.3) mg/dL AST (14-36) U/L ALT (4-34) U/L Alkaline Phosphatase (38-126) U/L Creatine Kinase (30-135) U/L Total Protein (6.3-8.2) g/dL Albumin (3.5-5.0) g/dL Amylase (30-110) U/L Lipase (23-300) U/L Urine Color Yellow Urine Appearance Clear (Clear) Urine pH 5.0 (5.0-8.0) Ur Specific [place] 1.022 (1.001-1.035) Urine Protein Negative (Negative) Urine Glucose (UA) Negative (Negative) Urine Ketones Negative (Negative) Urine Blood Negative (Negative) Urine Nitrite Negative (Negative) Urine Bilirubin Negative (Negative) Urine Urobilinogen <2.0 (<2.0) mg/dL Ur Leukocyte Esterase Negative (Negative) Urine HCG, Qual Not Detected (Not Detectd) 01/06/21 Range/Units 05:18 WBC (3.8-10.6) k/uL RBC (3.80-5.40) m/uL Hgb (11.4-16.0) gm/dL Hct (34.0-46.0) % MCV (80.0-100.0) fL MCH (25.0-35.0) pg MCHC (31.0-37.0) g/dL RDW (11.5-15.5) % Plt Count (150-450) k/uL MPV Neutrophils % % Lymphocytes % % Monocytes % % Eosinophils % % Basophils % % Neutrophils # (1.3-7.7) k/uL Lymphocytes # (1.0-4.8) k/uL Monocytes # (0-1.0) k/uL Eosinophils # (0-0.7) k/uL Basophils # (0-0.2) k/uL Sodium 136 L (137-145) mmol/L Potassium 4.6 (3.5-5.1) mmol/L Chloride 109 H (98-107) mmol/L Carbon Dioxide 20 L (22-30) mmol/L Anion Gap 7 mmol/L BUN 9 (7-17) mg/dL Creatinine 0.79 (0.52-1.04) mg/dL Est GFR (CKD-EPI)AfAm >90 (>60 ml/min/1.73 sqM) Est GFR (CKD-EPI)NonAf >90 (>60 ml/min/1.73 sqM) Glucose 99 (74-99) mg/dL Calcium 9.4 (8.4-10.2) mg/dL Total Bilirubin 0.4 (0.2-1.3) mg/dL AST 26 (14-36) U/L ALT 13 (4-34) U/L Alkaline Phosphatase 40 (38-126) U/L Creatine Kinase 122 (30-135) U/L Total Protein 6.4 (6.3-8.2) g/dL Albumin 4.0 (3.5-5.0) g/dL Amylase 72 (30-110) U/L Lipase 100 (23-300) U/L Urine Color Urine Appearance (Clear) Urine pH (5.0-8.0) Ur Specific [place] (1.001-1.035) Urine Protein (Negative) Urine Glucose (UA) (Negative) Urine Ketones (Negative) Urine Blood (Negative) Urine Nitrite (Negative) Urine Bilirubin (Negative) Urine Urobilinogen (<2.0) mg/dL Ur Leukocyte Esterase (Negative) Urine HCG, Qual (Not Detectd) - Radiology Data Radiology results: report reviewed (X-ray KUB is negative for acute disease), image reviewed Disposition Clinical Impression: Abdominal pain Disposition: HOME SELF-CARE Condition: Good Instructions (If sedation given, give patient instructions): Abdominal Pain (ED) Prescriptions: Metoclopramide [Reglan] 10 mg PO TID PRN #60 tab PRN Reason: nausea/vomiting Is patient prescribed a controlled substance at d/c from ED?: No Referrals: Jones Salazar MD [Primary Care Provider] - 1-2 days
[2021-01-06 05:44] LABS: Basophils % (A) 0 %; Eosinophils # (A) 0.2 k/uL (0-0.7); Eosinophils % (A) 3 %; HCT 44.5 % (34.0-46.0); HGB 14.6 gm/dL (11.4-16.0); Lymphocytes # (A) 2.5 k/uL (1.0-4.8); Lymphocytes % (A) 39 %; MCH 29.1 pg (25.0-35.0); MCHC 32.9 g/dL (31.0-37.0); MCV 88.6 fL (80.0-100.0); Mean Platelet Volume 7.4; Monocytes # (A) 0.3 k/uL (0-1.0); Monocytes % (A) 5 %; Neutrophils # (A) 3.3 k/uL (1.3-7.7); Neutrophils % (A) 51 %; Platelet Count 282 k/uL (150-450); RBC 5.02 m/uL (3.80-5.40); RDW 12.9 % (11.5-15.5); WBC 6.4 k/uL (3.8-10.6)
[2021-01-06 05:45] LABS: Appearance,Urine Clear (Clear); Bilirubin,Urine Negative (Negative); Blood,Urine Negative (Negative); Color,Urine Yellow; Glucose,Urine (UA) Negative (Negative); Ketones,Urine Negative (Negative); Leukocyte Esterase,Urine Negative (Negative); Nitrite,Urine Negative (Negative); Protein,Urine Negative (Negative); Specific Gravity,Urine 1.022 (1.001-1.035); Urobilinogen,Urine <2.0 mg/dL (<2.0)
[2021-01-06 06:09] LABS: ALT 13 U/L (4-34); AST 26 U/L (14-36); African American GFR (CKD) >90 (>60 ml/min/1.73 sqM); Alkaline Phosphatase 40 U/L (38-126); Amylase 72 U/L (30-110); Anion Gap 7 mmol/L; Blood Urea Nitrogen 9 mg/dL (7-17); Calcium 9.4 mg/dL (8.4-10.2); Carbon Dioxide 20 mmol/L (22-30); Chloride 109 mmol/L (98-107); Creatine Kinase 122 U/L (30-135); Glucose 99 mg/dL (74-99); Lipase 100 U/L (23-300); Non-African American GFR(CKD) >90 (>60 ml/min/1.73 sqM); Potassium 4.6 mmol/L (3.5-5.1); Sodium 136 mmol/L (137-145); Total Bilirubin 0.4 mg/dL (0.2-1.3); Total Protein 6.4 g/dL (6.3-8.2)
--- NOTE | 2021-01-06 07:01 | XR ---
EXAMINATION TYPE: XR KUB DATE OF EXAM: 01/06/2021 6:24 AM CLINICAL HISTORY: Abdominal pain upper specified TECHNIQUE: Two Upright KUB images of the abdomen are obtained. COMPARISON: Prior abdominal x-ray July 17, 2020. FINDINGS: Gas is seen in nondistended stomach. Scattered gas is seen in non-distended small bowel loo ps in the lower abdomen and pelvis. Gas and fecal material is seen in non-distended colon. There is n o visceromegaly, pneumoperitoneum, or abnormal calcification appreciated. The lung bases are clear an d the osseous structures are intact. IMPRESSION: Overall nonobstructive bowel gas pattern. No significant change from prior.
[2021-01-06 07:18] VITALS: BP 99/66; PULSE 54; TEMP 98.3
== END 2021-01-06 07:18 | disposition home or self-care (01) ==
LOC: EC 04:49
DX: R10.84 Generalized abdominal pain (principal); F17.200 Nicotine dependence, unspecified, uncomplicated; F12.90 Cannabis use, unspecified, uncomplicated
CPT/HCPCS: 99284; 96374; 96375 ×2; 96361; 96372; 36415; 80053; 82150; 82550; 83690; 85025; 81003; 81025; 74018; J2270; J0500; J2405; J1885

== ENCOUNTER 2021-11-18 13:42 | Emergency (ER) | payer OTHER ==
[2021-11-18 15:08] VITALS: BP 129/86; PULSE 72; RESP 16; TEMP 98.2
--- NOTE | 2021-11-18 15:58 | XR ---
EXAMINATION TYPE: XR foot complete LT DATE OF EXAM: 11/18/2021 COMPARISON: NONE HISTORY: Foot pain TECHNIQUE: 3 views FINDINGS: Metatarsals are intact. I see no fracture nor dislocation. Joint spaces are normal. The toe s are intact. IMPRESSION: Negative left foot exam
--- NOTE | 2021-11-18 16:15 | ED ---
General Adult HPI - General Chief complaint: Extremity Injury, Lower Stated complaint: foot injury Time Seen by Provider: 11/18/21 16:00 Source: patient, RN notes reviewed, old records reviewed Mode of arrival: ambulatory Limitations: no limitations - History of Present Illness Initial comments: 26-year-old female presents to the emergency room ambulatory with complaints of left foot pain after falling and getting her two small toes caught on a rope bending them backwards. Patient states that she has been able to ambulate but continues to have pain shooting through her foot up into her spine when she walks. Patient states that she also had another fall on November 06 states she fell approximately 6 feet from a fence landing on her back and has been having some mid back pain and would like an x-ray as well. -: week(s) (2) Location: back, left, lower extremity (foot) Radiation: back Severity scale (1-10): 3 Quality: aching, other (shooting) Consistency: intermittent Improves with: immobilization Worsens with: other (walking) Associated Symptoms: other (back pain) - Related Data Previous Rx's Medication Instructions Recorded Ibuprofen [Motrin] 600 mg PO Q8HR PRN #20 tab 12/16/16 polyethylene glycoL 3350 [Miralax] 17 gm PO DAILY PRN #527 gm 07/17/20 Ondansetron Odt [Zofran ODT] 4 mg PO Q8HR PRN #10 tab 09/18/20 Cephalexin [Keflex] 500 mg PO Q8HR 7 Days #21 cap 11/06/20 Clindamycin [Cleocin] 300 mg PO QID 7 Days #56 cap 11/06/20 Metoclopramide [Reglan] 10 mg PO TID PRN #60 tab 01/06/21 Allergies Allergy/AdvReac Type Severity Reaction Status Date / Time No Known Allergies Allergy Verified 11/18/21 15:07 Review of Systems ROS Statement: Those systems with pertinent positive or pertinent negative responses have been documented in the HPI. ROS Other: All systems not noted in ROS Statement are negative. Past Medical History Past Medical History: No Reported History History of Any Multi-Drug Resistant Organisms: None Reported Past Surgical History: No Surgical Hx Reported Past Psychological History: Anxiety Smoking Status: Current every day smoker Past Alcohol Use History: Occasional Past Drug Use History: Marijuana General Exam Limitations: no limitations General appearance: alert, in no apparent distress Head exam: Present: atraumatic Neck exam: Present: normal inspection, full ROM. Absent: tenderness, meningismus Respiratory exam: Absent: respiratory distress, accessory muscle use Cardiovascular Exam: Present: regular rate Extremities exam: Absent: pedal edema Left Foot/Toe exam: Present: normal inspection, full ROM, tenderness (Fourth and fifth digit left foot). Absent: swelling, abrasion, laceration, ecchymosis, deformity, erythema, puncture wound, foreign body, calcaneal tenderness, tenderness at base of 5th metatarsal Neurovascular tendon exam: Present: no vascular compromise. Absent: abnormal cap refill, extremity cold to touch, pallor, foot drop Gait: observed and normal Back exam: Present: full ROM, other (Abrasion with dried scale approx 4cm noted at gluteal cleft, no exudate or erythema). Absent: tenderness, CVA tenderness (R), CVA tenderness (L), rash noted Neurological exam: Present: alert, oriented X3, normal gait Psychiatric exam: Present: normal affect, normal mood Skin exam: Present: warm, dry, normal color. Absent: cyanosis, diaphoretic, petechiae, pallor Course Vital Signs 11/18/21 15:05 Temperature 98.2 F Pulse Rate 72 Respiratory 16 Rate Blood Pressure 129/86 O2 Sat by Pulse 97 Oximetry Medical Decision Making - Medical Decision Making Patient initially presents with left foot pain in triage. She was initially evaluated in triage with x-ray showing no evidence of fracture. On physical exam there is no swelling or bruising noted. Patient was advised of these results and then stated that she also fell 6 feet off of a fence on November 06 landing on her back and is concerned for mid upper back pain requesting an x-ray. There is a healing abrasion noted to the left side gluteal cleft with no evidence of infection. X-ray thoracic spine was performed showing no evidence of acute fracture. He does have full range of motion. No evidence of bruising, swelling or abrasions noted in the area pain. Patient is well-appearing, vital signs are stable. She was discharged home ambulatory and directed to take Tylenol and/or Motrin as needed for pain. Follow-up with primary care doctor next week. Case discussed with Dr. Cortez. Disposition Clinical Impression: Back pain, Foot pain, left Disposition: HOME SELF-CARE Condition: Good Instructions (If sedation given, give patient instructions): Foot Contusion (ED), Back Pain (ED) Additional Instructions: Take Tylenol and or Motrin as needed for any pain. Follow-up with the primary care doctor next week. Return to the emergency room with any new or concerning symptoms including increased pain, bowel or bladder incontinence or fevers. Is patient prescribed a controlled substance at d/c from ED?: No Referrals: Jones Salazar MD [Primary Care Provider] - 1-2 days Time of Disposition: 16:42
--- NOTE | 2021-11-18 16:36 | XR ---
EXAMINATION TYPE: XR thoracic spine complete DATE OF EXAM: 11/18/2021 COMPARISON: NONE HISTORY: Back pain TECHNIQUE: 3 views FINDINGS: Thoracic vertebra have normal alignment. Posterior elements are intact. No compression frac ture. There is no paraspinal mass. IMPRESSION: Negative thoracic spine exam. No fracture
== END 2021-11-18 16:52 | disposition home or self-care (01) ==
LOC: EC 13:42
DX: M79.672 Pain in left foot (principal); M54.50 Low back pain, unspecified; F17.200 Nicotine dependence, unspecified, uncomplicated; W19.XXXA Unspecified fall, initial encounter
CPT/HCPCS: 72072; 99283

== ENCOUNTER 2021-12-09 04:54 | Emergency (ER) | payer OTHER ==
[2021-12-09 05:03] VITALS: BP 105/69; PULSE 59; RESP 18; TEMP 98.1
--- NOTE | 2021-12-09 06:21 | ED ---
General Adult HPI - General Chief complaint: Recheck/Abnormal Lab/Rx Stated complaint: weakness Time Seen by Provider: 12/09/21 06:05 Source: patient, RN notes reviewed Mode of arrival: ambulatory Limitations: no limitations - History of Present Illness Initial comments: 26-year-old female Department requesting a work note. Patient states donated plasma states that she felt fatigued Sarah, felt nauseated but states she feels better she needs a work note for today. Patient has a chest pain shortness breath fever chills abdominal pain - Related Data Previous Rx's Medication Instructions Recorded Ibuprofen [Motrin] 600 mg PO Q8HR PRN #20 tab 12/16/16 polyethylene glycoL 3350 [Miralax] 17 gm PO DAILY PRN #527 gm 07/17/20 Ondansetron Odt [Zofran ODT] 4 mg PO Q8HR PRN #10 tab 09/18/20 Cephalexin [Keflex] 500 mg PO Q8HR 7 Days #21 cap 11/06/20 Clindamycin [Cleocin] 300 mg PO QID 7 Days #56 cap 11/06/20 Metoclopramide [Reglan] 10 mg PO TID PRN #60 tab 01/06/21 Allergies Allergy/AdvReac Type Severity Reaction Status Date / Time No Known Allergies Allergy Verified 12/09/21 05:03 Review of Systems ROS Statement: Those systems with pertinent positive or pertinent negative responses have been documented in the HPI. ROS Other: All systems not noted in ROS Statement are negative. Past Medical History Past Medical History: No Reported History History of Any Multi-Drug Resistant Organisms: None Reported Past Surgical History: No Surgical Hx Reported Past Psychological History: Anxiety Smoking Status: Current every day smoker Past Alcohol Use History: Occasional Past Drug Use History: Marijuana General Exam Limitations: no limitations General appearance: alert, in no apparent distress Head exam: Present: atraumatic, normocephalic, normal inspection Eye exam: Present: normal appearance, PERRL, EOMI. Absent: scleral icterus, conjunctival injection, periorbital swelling Respiratory exam: Present: normal lung sounds bilaterally. Absent: respiratory distress, wheezes, rales, rhonchi, stridor Cardiovascular Exam: Present: regular rate, normal rhythm, normal heart sounds. Absent: systolic murmur, diastolic murmur, rubs, gallop, clicks Course Vital Signs 12/09/21 04:58 Temperature 98.1 F Pulse Rate 59 L Respiratory 18 Rate Blood Pressure 105/69 O2 Sat by Pulse 96 Oximetry Disposition Clinical Impression: Nausea, Plasma donor Disposition: HOME SELF-CARE Condition: Stable Instructions (If sedation given, give patient instructions): Acute Nausea and Vomiting (ED) Additional Instructions: Please return to the Emergency Department if symptoms worsen or any other concerns. Is patient prescribed a controlled substance at d/c from ED?: No Referrals: Jones Salazar MD [Primary Care Provider] - 1-2 days Time of Disposition: 06:21
== END 2021-12-09 06:42 | disposition home or self-care (01) ==
LOC: EC 04:54
DX: R11.2 Nausea with vomiting, unspecified (principal); F17.200 Nicotine dependence, unspecified, uncomplicated
CPT/HCPCS: 99284

== ENCOUNTER 2022-01-04 05:28 | Emergency (ER) | payer OTHER ==
[2022-01-04 05:33] VITALS: BP 110/70; PULSE 99; RESP 16; TEMP 98.1
[2022-01-04] MEDS ORDERED: CEPHALEXIN 500 MG CAP PO STA (06:32)
--- NOTE | 2022-01-04 07:23 | ED ---
Skin/Abscess/FB HPI - General Chief complaint: Skin/Abscess/Foreign Body Stated complaint: abcess on behind Time Seen by Provider: 01/04/22 06:21 Source: patient, RN notes reviewed Mode of arrival: ambulatory Limitations: no limitations - History of Present Illness Initial comments: 26-year-old female presents emergency Department with chief complaint of buttocks abscess. Patient states she had one opened up 2 weeks ago patient states that she believes she has a second on the just started last day or 2. Patient states she is minimal pain no drainage. No fevers or chills no other associated complaints or history of MRSA. - Related Data Previous Rx's Medication Instructions Recorded Ibuprofen [Motrin] 600 mg PO Q8HR PRN #20 tab 12/16/16 polyethylene glycoL 3350 [Miralax] 17 gm PO DAILY PRN #527 gm 07/17/20 Ondansetron Odt [Zofran ODT] 4 mg PO Q8HR PRN #10 tab 09/18/20 Cephalexin [Keflex] 500 mg PO Q8HR 7 Days #21 cap 11/06/20 Clindamycin [Cleocin] 300 mg PO QID 7 Days #56 cap 11/06/20 Metoclopramide [Reglan] 10 mg PO TID PRN #60 tab 01/06/21 Cephalexin [Keflex] 500 mg PO Q6HR #40 cap 01/04/22 Sulfamethox-Tmp 800-160Mg [Bactrim 1 each PO Q12HR #20 tab 01/04/22 Ds] Allergies Allergy/AdvReac Type Severity Reaction Status Date / Time No Known Allergies Allergy Verified 01/04/22 05:30 Review of Systems ROS Statement: Those systems with pertinent positive or pertinent negative responses have been documented in the HPI. ROS Other: All systems not noted in ROS Statement are negative. Past Medical History Past Medical History: No Reported History History of Any Multi-Drug Resistant Organisms: None Reported Past Surgical History: No Surgical Hx Reported Past Psychological History: Anxiety Smoking Status: Current every day smoker Past Alcohol Use History: Occasional Past Drug Use History: Marijuana General Exam Limitations: no limitations General appearance: alert, in no apparent distress Head exam: Present: atraumatic, normocephalic, normal inspection Eye exam: Present: normal appearance, PERRL, EOMI. Absent: scleral icterus, conjunctival injection, periorbital swelling ENT exam: Present: normal exam, normal oropharynx, mucous membranes moist Neck exam: Present: normal inspection, full ROM. Absent: tenderness, meningismus, lymphadenopathy Respiratory exam: Present: normal lung sounds bilaterally. Absent: respiratory distress, wheezes, rales, rhonchi, stridor Cardiovascular Exam: Present: regular rate, normal rhythm, normal heart sounds. Absent: systolic murmur, diastolic murmur, rubs, gallop, clicks Neurological exam: Present: alert Skin exam: Present: warm, dry, intact, normal color, other (Left buttocks 0.5 cm abscess nonfluctuant minimal erythema). Absent: rash Course Vital Signs 01/04/22 05:30 Temperature 98.1 F Pulse Rate 99 Respiratory 16 Rate Blood Pressure 110/70 O2 Sat by Pulse 98 Oximetry Medical Decision Making - Medical Decision Making Patient has nonfluctuant early abscess will be started on oral antibiotics we discussed what compresses if worse and will have I&D. Disposition Clinical Impression: Abscess of buttock Disposition: HOME SELF-CARE Condition: Stable Instructions (If sedation given, give patient instructions): Abscess (ED) Additional Instructions: Please return to the Emergency Department if symptoms worsen or any other concerns. Prescriptions: Sulfamethox-Tmp 800-160Mg [Bactrim Ds] 1 each PO Q12HR #20 tab Cephalexin [Keflex] 500 mg PO Q6HR #40 cap Is patient prescribed a controlled substance at d/c from ED?: No Referrals: Jones Salazar MD [Primary Care Provider] - 1-2 days Time of Disposition: 06:32
== END 2022-01-04 06:57 | disposition home or self-care (01) ==
LOC: EC 05:28
DX: L02.31 Cutaneous abscess of buttock (principal); F17.200 Nicotine dependence, unspecified, uncomplicated
CPT/HCPCS: 99282

== ENCOUNTER 2022-03-17 16:13 | Emergency (ER) | payer OTHER ==
[2022-03-17 16:17] VITALS: RESP 20; TEMP 97.2
[2022-03-17] MEDS ORDERED: ONDANSETRON ODT 4 MG TAB PO STA (16:25)
--- NOTE | 2022-03-17 16:30 | ED ---
General Adult HPI - General Chief complaint: Nausea/Vomiting/Diarrhea Stated complaint: abd pain Time Seen by Provider: 03/17/22 16:18 Source: patient, RN notes reviewed Mode of arrival: ambulatory Limitations: no limitations - History of Present Illness Initial comments: This is a pleasant 26-year-old female who presents to the emergency department for evaluation of multiple episodes of diarrhea, onset this morning. Patient states she thinks she ate something last night that did not agree with her. States her stomach has been upset and she has had 8 episodes of liquid stool since awakening this morning. Patient states she is able to tolerate oral intake without vomiting. Has mild nausea at this time. Denies fever, chills, ongoing abdominal pain, hematochezia, dysuria, hematuria, chance of , recent travel, or sick exposure. - Related Data Home Medications Medication Instructions Recorded Confirmed Ibuprofen [Motrin] 400 mg PO Q4H PRN 03/17/22 03/17/22 Allergies Allergy/AdvReac Type Severity Reaction Status Date / Time No Known Allergies Allergy Verified 03/17/22 16:45 Review of Systems ROS Statement: Those systems with pertinent positive or pertinent negative responses have been documented in the HPI. ROS Other: All systems not noted in ROS Statement are negative. Past Medical History Past Medical History: No Reported History History of Any Multi-Drug Resistant Organisms: None Reported Past Surgical History: No Surgical Hx Reported Past Psychological History: Anxiety Smoking Status: Current every day smoker Past Alcohol Use History: Occasional Past Drug Use History: Marijuana General Exam Limitations: no limitations (Well-developed, well-nourished female in no acute distress. Initial temperature 97.2, pulse 80, respirations 20, blood pressure 110/69, pulse ox 97% on room air.) General appearance: alert, in no apparent distress ENT exam: Present: normal exam, normal oropharynx, mucous membranes moist Respiratory exam: Present: normal lung sounds bilaterally. Absent: respiratory distress, wheezes, rales, rhonchi, stridor Cardiovascular Exam: Present: regular rate, normal rhythm, normal heart sounds. Absent: systolic murmur, diastolic murmur, rubs, gallop, clicks GI/Abdominal exam: Present: soft, normal bowel sounds. Absent: distended, tenderness, guarding, rebound, rigid Back exam: Absent: CVA tenderness (R), CVA tenderness (L) Neurological exam: Present: alert, oriented X3, CN II-XII intact Psychiatric exam: Present: normal affect, normal mood Skin exam: Present: warm, dry, intact, normal color. Absent: rash Course Vital Signs 03/17/22 03/17/22 16:15 16:32 Temperature 97.2 F L Pulse Rate 80 86 Respiratory 20 20 Rate Blood Pressure 110/69 110/60 O2 Sat by Pulse 97 98 Oximetry - Reevaluation(s) Reevaluation #1: 03/17/22 16:29 Discussed plan of care with patient. She declines IV fluids and would just like blood work. She is agreeable to Zofran for mild nausea. Work note will be provided. Medical Decision Making - Medical Decision Making This is a well-appearing 26-year-old female who presents to the emergency department for evaluation of multiple episodes of diarrhea, onset this morning. Physical exam is unremarkable. Patient is able to tolerate intake and declines IV fluids. Laboratory studies were obtained and are unremarkable. No sick exposures or recent travel. Patient will be discharged home with a note for work and instructed to follow up with her PCP as needed. Return parameters discussed in detail. Patient verbalizes understanding and agrees with this plan. Attending: Matteo. - Lab Data Result diagrams: 03/17/22 16:31 03/17/22 16:31 Lab Results 03/17/22 03/17/22 Range/Units 16:31 16:31 WBC 7.2 (3.8-10.6) k/uL RBC 4.71 (3.80-5.40) m/uL Hgb 13.9 (11.4-16.0) gm/dL Hct 41.1 (34.0-46.0) % MCV 87.3 (80.0-100.0) fL MCH 29.5 (25.0-35.0) pg MCHC 33.7 (31.0-37.0) g/dL RDW 12.8 (11.5-15.5) % Plt Count 267 (150-450) k/uL MPV 7.1 Neutrophils % 54 % Lymphocytes % 37 % Monocytes % 5 % Eosinophils % 1 % Basophils % 1 % Neutrophils # 3.9 (1.3-7.7) k/uL Lymphocytes # 2.7 (1.0-4.8) k/uL Monocytes # 0.4 (0-1.0) k/uL Eosinophils # 0.1 (0-0.7) k/uL Basophils # 0.0 (0-0.2) k/uL Sodium 139 (137-145) mmol/L Potassium 4.2 (3.5-5.1) mmol/L Chloride 108 H (98-107) mmol/L Carbon Dioxide 18 L (22-30) mmol/L Anion Gap 13 mmol/L BUN 9 (7-17) mg/dL Creatinine 0.77 (0.52-1.04) mg/dL Est GFR (CKD-EPI)AfAm >90 (>60 ml/min/1.73 sqM) Est GFR (CKD-EPI)NonAf >90 (>60 ml/min/1.73 sqM) Glucose 96 (74-99) mg/dL Calcium 9.2 (8.4-10.2) mg/dL Total Bilirubin 0.2 (0.2-1.3) mg/dL AST 21 (14-36) U/L ALT 18 (4-34) U/L Alkaline Phosphatase 58 (38-126) U/L Total Protein 6.5 (6.3-8.2) g/dL Albumin 4.3 (3.5-5.0) g/dL Disposition Clinical Impression: Diarrhea Disposition: HOME SELF-CARE Condition: Stable Instructions (If sedation given, give patient instructions): Acute Diarrhea (ED) Additional Instructions: Consider an electrolyte solution/drink such as Gatorade or Powerade. Start with a clear liquid diet such as chicken broth, jello, and/or tea, then progress as tolerated. If diarrhea persists beyond 48 hours, follow-up with your PCP. If you develop any blood in your stool, persistent dizziness, or inability to tolerate oral intake, return to the emergency department. Is patient prescribed a controlled substance at d/c from ED?: No Referrals: Jones Salazar MD [Primary Care Provider] - 1-2 days Time of Disposition: 17:12
[2022-03-17 16:33] VITALS: BP 110/60; PULSE 86
[2022-03-17 16:49] LABS: Basophils % (A) 1 %; Eosinophils # (A) 0.1 k/uL (0-0.7); Eosinophils % (A) 1 %; HCT 41.1 % (34.0-46.0); HGB 13.9 gm/dL (11.4-16.0); Lymphocytes # (A) 2.7 k/uL (1.0-4.8); Lymphocytes % (A) 37 %; MCH 29.5 pg (25.0-35.0); MCHC 33.7 g/dL (31.0-37.0); MCV 87.3 fL (80.0-100.0); Mean Platelet Volume 7.1; Monocytes # (A) 0.4 k/uL (0-1.0); Monocytes % (A) 5 %; Neutrophils # (A) 3.9 k/uL (1.3-7.7); Neutrophils % (A) 54 %; Platelet Count 267 k/uL (150-450); RBC 4.71 m/uL (3.80-5.40); RDW 12.8 % (11.5-15.5); WBC 7.2 k/uL (3.8-10.6)
[2022-03-17 17:05] LABS: ALT 18 U/L (4-34); AST 21 U/L (14-36); African American GFR (CKD) >90 (>60 ml/min/1.73 sqM); Albumin 4.3 g/dL (3.5-5.0); Alkaline Phosphatase 58 U/L (38-126); Anion Gap 13 mmol/L; Blood Urea Nitrogen 9 mg/dL (7-17); Calcium 9.2 mg/dL (8.4-10.2); Carbon Dioxide 18 mmol/L (22-30); Chloride 108 mmol/L (98-107); Glucose 96 mg/dL (74-99); Non-African American GFR(CKD) >90 (>60 ml/min/1.73 sqM); Potassium 4.2 mmol/L (3.5-5.1); Sodium 139 mmol/L (137-145); Total Bilirubin 0.2 mg/dL (0.2-1.3); Total Protein 6.5 g/dL (6.3-8.2)
== END 2022-03-17 17:23 | disposition home or self-care (01) ==
LOC: EC 16:13
DX: R19.7 Diarrhea, unspecified (principal); F12.90 Cannabis use, unspecified, uncomplicated
CPT/HCPCS: 36415; 80053; 85025; 99284

== ENCOUNTER 2022-05-21 09:45 | Emergency (ER) | payer OTHER ==
--- NOTE | 2022-05-21 10:00 | ED ---
General Adult HPI - General Source: patient, RN notes reviewed Mode of arrival: ambulatory Limitations: no limitations <Easton Yanes - Last Filed: 05/21/22 09:58> - General Source: patient, RN notes reviewed Mode of arrival: ambulatory Limitations: no limitations - History of Present Illness -: month(s) (6) Location: buttocks (left ) Radiation: non-radiation Severity scale (1-10): 3 Quality: constant Associated Symptoms: denies other symptoms Treatments Prior to Arrival: none <Jayden Doty - Last Filed: 05/21/22 17:16> - General Stated complaint: Female Time Seen by Provider: 05/21/22 09:58 - History of Present Illness Initial comments: 26-year-old female presents emergency Department chief complaint buttocks wound. Patient states that she injury approximate 6 months ago when she fell 6 feet onto her buttocks and 2 puncture wounds. Patient states she developed an infection was placed on antibiotics. Patient states she keeps having opening of the wound and is not healing. Patient denies any fevers or chills she states it is painful at times. (Easton Yanes) Nontoxic-appearing 26-year-old female presents ambulatory with complaints of a lesion on her left buttock. She states that she has had this lesion on and off for the past 6 months and had it drained in the past and placed on antibiotics. Seen her primary care doctor multiple times for this but it keeps coming back. Denies any fevers. Did have some drainage this morning. (Jayden Doty) - Related Data Home Medications Medication Instructions Recorded Confirmed Ibuprofen [Motrin] 400 mg PO Q4H PRN 03/17/22 03/17/22 Previous Rx's Medication Instructions Recorded Cephalexin [Keflex] 500 mg PO Q6HR 5 Days #20 cap 05/21/22 Allergies Allergy/AdvReac Type Severity Reaction Status Date / Time No Known Allergies Allergy Verified 05/21/22 10:00 Review of Systems ROS Other: All systems not noted in ROS Statement are negative. <Easton Yanes - Last Filed: 05/21/22 09:58> ROS Other: All systems not noted in ROS Statement are negative. <Jayden Doty - Last Filed: 05/21/22 17:16> ROS Statement: Those systems with pertinent positive or pertinent negative responses have been documented in the HPI. Past Medical History Past Medical History: No Reported History History of Any Multi-Drug Resistant Organisms: None Reported Past Surgical History: No Surgical Hx Reported Past Psychological History: Anxiety Smoking Status: Current every day smoker Past Alcohol Use History: Occasional Past Drug Use History: Marijuana <Easton Yanes - Last Filed: 05/21/22 09:58> General Exam Limitations: no limitations General appearance: alert, in no apparent distress Head exam: Present: atraumatic Eye exam: Absent: scleral icterus, conjunctival injection, periorbital swelling Respiratory exam: Absent: respiratory distress, accessory muscle use Cardiovascular Exam: Present: regular rate Neurological exam: Present: alert, oriented X3, normal gait Psychiatric exam: Present: normal affect, normal mood Skin exam: Present: warm, dry, normal color, other (1/2cm lesion on erythematous base on left buttock, no fluctuation minimal induration, no drainage, dried scale in center) <Jayden Doty - Last Filed: 05/21/22 17:16> Course Vital Signs 05/21/22 05/21/22 09:58 12:33 Temperature 98.3 F 98.4 F Pulse Rate 77 72 Respiratory 18 16 Rate Blood Pressure 128/86 112/81 O2 Sat by Pulse 100 97 Oximetry Medical Decision Making <Jayden Doty - Last Filed: 05/21/22 17:16> - Medical Decision Making Patient seen by me at 11:50 AM This appears to be a folliculitis with a dry scaled center and minimal surrounding erythema. No area of fluctuance for incision and drainage. She will be placed on antibiotics directed to soak in a sitz bath as she states she did have drainage from it this morning. Directed to follow up with her primary care doctor and given a referral to surgery for frequent recurrence. Case discussed with Dr. Fairchild (Jayden Doty) Disposition <Easton Yanes - Last Filed: 05/21/22 09:58> Is patient prescribed a controlled substance at d/c from ED?: No Time of Disposition: 12:13 <Jayden Doty - Last Filed: 05/21/22 17:16> Clinical Impression: Abscess Disposition: HOME SELF-CARE Condition: Good Instructions (If sedation given, give patient instructions): Cellulitis (ED), Abscess (ED), Sitz Bath (DC) Additional Instructions: Sitz baths or soaks in warm soapy water at least twice a day to promote drainage. Take antibiotics as prescribed. Follow-up with Dr. Salazar or surgery as necessary. Prescriptions: Cephalexin [Keflex] 500 mg PO Q6HR 5 Days #20 cap Referrals: Jones Salazar MD [Primary Care Provider] - 1-2 days Mabel Yoder MD [STAFF PHYSICIAN] - 1-2 days
[2022-05-21 12:36] VITALS: BP 112/81; PULSE 72; RESP 16; TEMP 98.4
== END 2022-05-21 12:33 | disposition home or self-care (01) ==
LOC: EC 09:45
DX: L02.31 Cutaneous abscess of buttock (principal); F41.9 Anxiety disorder, unspecified; F17.200 Nicotine dependence, unspecified, uncomplicated
CPT/HCPCS: 99283

== ENCOUNTER 2022-09-03 06:25 | Emergency (ER) | payer OTHER ==
[2022-09-03 06:45] VITALS: BP 120/77; PULSE 63; RESP 16; TEMP 98.2
[2022-09-03] MEDS ORDERED: IBUPROFEN 600 MG STARTER PACK 4 TAB BTL PO STA (07:19)
[2022-09-03] MEDS ORDERED: CYCLOBENZAPRINE 10MG STARTER 3 TAB BTL PO STA (07:19)
--- NOTE | 2022-09-03 07:24 | ED ---
General Adult HPI - General Chief complaint: Extremity Injury, Lower Stated complaint: Left Hip pain Time Seen by Provider: 09/03/22 06:57 Source: patient, RN notes reviewed Mode of arrival: ambulatory Limitations: no limitations - History of Present Illness Initial comments: Patient is a pleasant 27-year-old female presents emergency department with co ncern for left sacral pain. Onset of symptoms was around 1 in the morning. Discomfort was fairly sudden onset. Discomfort is persistent and positional. No redness or swelling. Patient does have history of previous abscess in this area following an injury. Patient has no fevers. Patient feels no redness or warmth. Patient states symptoms are not similar to previous abscess. No weakness or loss of sensation. No incontinence or retention of bowel or bladder. - Related Data Home Medications Medication Instructions Recorded Confirmed Ibuprofen [Motrin] 400 mg PO Q4H PRN 03/17/22 03/17/22 Previous Rx's Medication Instructions Recorded Cephalexin [Keflex] 500 mg PO Q6HR 5 Days #20 cap 05/21/22 Cyclobenzaprine [Flexeril] 10 mg PO TID PRN #12 tablet 09/03/22 Ibuprofen [Motrin] 600 mg PO Q6HR PRN #20 tab 09/03/22 Allergies Allergy/AdvReac Type Severity Reaction Status Date / Time No Known Allergies Allergy Verified 07/12/22 09:47 Review of Systems ROS Statement: Those systems with pertinent positive or pertinent negative responses have been documented in the HPI. ROS Other: All systems not noted in ROS Statement are negative. Constitutional: Denies: fever, chills Eyes: Denies: eye pain ENT: Denies: ear pain Respiratory: Denies: cough Cardiovascular: Denies: chest pain Endocrine: Denies: fatigue Gastrointestinal: Denies: abdominal pain Genitourinary: Denies: dysuria Musculoskeletal: Reports: as per HPI Skin: Denies: rash Neurological: Denies: weakness Past Medical History Past Medical History: No Reported History History of Any Multi-Drug Resistant Organisms: None Reported Past Surgical History: No Surgical Hx Reported Past Psychological History: Anxiety Smoking Status: Current every day smoker Past Alcohol Use History: Occasional Past Drug Use History: Marijuana General Exam Limitations: no limitations General appearance: alert, in no apparent distress Head exam: Present: normocephalic Eye exam: Present: normal appearance Neck exam: Present: normal inspection Respiratory exam: Present: normal lung sounds bilaterally Cardiovascular Exam: Present: regular rate, normal rhythm GI/Abdominal exam: Present: soft. Absent: tenderness Extremities exam: Present: normal inspection. Absent: tenderness Back exam: Present: other (Mild tenderness left sacroiliac region which is the patient's area of complaint. No redness or warmth or erythema.) Neurological exam: Absent: motor sensory deficit Psychiatric exam: Present: normal affect, normal mood Skin exam: Present: normal color. Absent: rash, erythema Course Vital Signs 09/03/22 06:38 Temperature 98.2 F Pulse Rate 63 Respiratory 16 Rate Blood Pressure 120/77 O2 Sat by Pulse 99 Oximetry Medical Decision Making - Medical Decision Making Was pt. sent in by a medical professional or institution (, PA, [employer] C[employer]TER, urgent care, hospital, or snf...) When possible be specific @ -No Did you speak to anyone other than the patient for history (EMS, parent, family, police, friend...)? What history was obtained from this source @ -No Did you review nursing and triage notes (agree or disagree)? Why? @ -I reviewed and agree with nursing and triage notes Were old charts reviewed (outside hosp., previous admission, EMS record, old EKG, old radiological studies, urgent care reports/EKG's, snf records)? Report findings @ -No old charts were reviewed Differential Diagnosis (chest pain, altered mental status, abdominal pain women, abdominal pain men, vaginal bleeding, weakness, fever, dyspnea, syncope, headache, dizziness, GI bleed, back pain, seizure, CVA, palpatations, mental health)? @ -Differential Back Pain: Strain, zoster, cauda equina syndrome, epidural abscess, vertebral osteomye litis, discitis, fracture, subluxation, disc herniation, DJD, spinal stenosis, dissection, AAA, pancreatitis, peptic ulcer disease, pyelonephritis, kidney stone, this is not meant to be an all-inclusive list. EKG interpreted by me (3pts min.). @ -As above X-rays interpreted by me (1pt min.). @ -None done CT interpreted by me (1pt min.). @ -None done U/S interpreted by me (1pt. min.). @ -None done What testing was considered but not performed or refused? (CT, X-rays, U/S, labs)? Why? @ -Considered imaging and offered patient however she does not feel is necessary. What meds were considered but not given or refused? Why? @ -None Did you discuss the management of the patient with other professionals (professionals i.e. , PA, [employer] C[employer]TER, lab, RT, psych nurse, social science instructor, field operations manager, teacher, bomb squad officer, casework supervisor)? Give summary @ -No Was smoking cessation discussed for >3mins.? @ -No Was critical care preformed (if so, how long)? @ -No Were there social determinants of health that impacted care today? How? (Homelessness, low income, unemployed, alcoholism, drug addiction, transportation, low edu. Level, literacy, decrease access to med. care, senior living, rehab)? @ -No Was there de-escalation of care discussed even if they declined (Discuss DNR or withdrawal of care, Hospice)? DNR status @ -No What co-morbidities impacted this encounter? (DM, HTN, Smoking, COPD, CAD, Cancer, CVA, ARF, Chemo, Hep., AIDS, mental health diagnosis, sleep apnea, morbid obesity)? @ -None Was patient admitted / discharged? Hospital course, mention meds given and route, prescriptions, significant lab abnormalities, going to OR and other pertinent info. @ -Patient has symptoms consistent with sciatica and she would like to try treatment with anti-inflammatories at this time. Patient was offered steroids however refuses. Patient is receptive to muscle relaxers. Patient is advised close follow-up. Undiagnosed new problem with uncertain prognosis? @ -No Drug Therapy requiring intensive monitoring for toxicity (Heparin, Nitro, Insulin, Cardizem)? @ -No Were any procedures done? @ -No Diagnosis/symptom? @ -Sciatica Acute, or Chronic, or Acute on Chronic? @ -Acute Uncomplicated (without systemic symptoms) or Complicated (systemic symptoms)? @ -default Side effects of treatment? @ -No Exacerbation, Progression, or Severe Exacerbation? @ -No Poses a threat to life or bodily function? How? (Chest pain, [place], [place], pneumonia, PE, COPD, DKA, ARF, appy, cholecystitis, CVA, Diverticulitis, Homicidal, Suicidal, threat to staff... and all critical care pts) @ -No Disposition Clinical Impression: Sciatica Disposition: HOME SELF-CARE Condition: Stable Instructions (If sedation given, give patient instructions): Sciatica (ED) Additional Instructions: Prescriptions have been sent to pharmacy. Please do follow-up with your primary care physician in the next couple days for recheck. Return for weakness, loss of sensation, loss of control of bowel or bladder, fever or redness, increased pain, worsening symptoms or other concerns. Prescriptions: Cyclobenzaprine [Flexeril] 10 mg PO TID PRN #12 tablet PRN Reason: Pain Ibuprofen [Motrin] 600 mg PO Q6HR PRN #20 tab PRN Reason: Pain Is patient prescribed a controlled substance at d/c from ED?: No Referrals: Jones Salazar MD [Primary Care Provider] - 1-2 days Time of Disposition: 07:24
== END 2022-09-03 07:36 | disposition home or self-care (01) ==
LOC: EC 06:25
DX: M54.32 Sciatica, left side (principal); F41.9 Anxiety disorder, unspecified; F17.200 Nicotine dependence, unspecified, uncomplicated; F12.90 Cannabis use, unspecified, uncomplicated; Z79.1 Long term (current) use of non-steroidal anti-inflammatories (NSAID)
CPT/HCPCS: 99283